=== PATIENT | female | born 1995 | race American Indian/Alaskan Native ===

== ENCOUNTER → 2022-04-14 | Emergency (ER) | payer MEDICAID ==
[~2022-04-14] MED LIST: ACETAMINOPHEN 325 MG TAB PO PRN; MORPHINE 2 MG/1 ML INJ IV PRN; MORPHINE 4 MG/1 ML INJ IV PRN; ONDANSETRON 4 MG/2 ML INJ IV PRN; SODIUM CHLORIDE 0.9% 500 ML 500 ML IV ONE
[2022-04-14 15:45] LABS: Mean Corpuscular HGB Conc 27 % (30-34); Platelet Count 214 K/mm3 (140-440); Red Blood Count 2.93 M/mm3 (3.65-5.03)
[2022-04-14 15:54] LABS: Hematocrit 16.7 % (30.3-42.9); Hemoglobin 4.5 gm/dl (10.1-14.3); Mean Corpuscular Volume 57 fl (79-97); Red Cell Distribution Width 20.7 % (13.2-15.2)
[2022-04-14 17:41] LABS: Basophils % (Manual) 0 % (0.0-1.8); Eosinophils % (Manual) 0 % (0.0-4.3); Total Cells Counted 100
[2022-04-14 17:42] LABS: Anisocytosis 2+; Hypochromasia 3+; Platelet Estimate Consistent w Auto; Poikilocytosis 1+; Tear Drop Cells Few
[2022-04-14 18:30] LABS: Blood Urea Nitrogen 9 mg/dL (7-17); Calcium 8.6 mg/dL (8.4-10.2); Hemolysis Index 1
[2022-04-14 18:32] LABS: BUN/Creatinine Ratio 18
[2022-04-14 21:20] VITALS: BP 104/55
--- NOTE | 2022-04-14 21:26 | Emergency Department Report ---
ED General Adult HPI - General Chief complaint: Pain General Stated complaint: DR ROSAS BLOOD TRANSFER Time Seen by Provider: 04/14/22 17:15 Source: patient Mode of arrival: Ambulatory Limitations: No Limitations - History of Present Illness Initial comments: The patient presents to the emergency department with a chief complaint of abnormal laboratory values. Patient states she went to her doctor yesterday and was told her hemoglobin was low. Patient does endorse a history of pica stating she eats ice daily. Patient is also a who is 4 weeks . She denies heavy vaginal bleeding and states her cycle only last 3 to 4 days. She also denies blood in her stool. Patient denies chest pain, shortness breath, or palpitations -: unknown Severity scale (0 -10): 0 Consistency: constant Improves with: none Worsens with: none Associated Symptoms: denies other symptoms Treatments Prior to Arrival: none - Related Data Previous Rx's Medication Instructions Recorded Last Taken Type Cyclobenzaprine [Flexeril 10mg] 10 mg PO TID PRN #20 tablet 03/23/14 Unknown Rx Ibuprofen [Motrin] 800 mg PO Q8H #30 tablet 03/23/14 Unknown Rx Nitrofurantoin [place]/M-Cryst 100 mg PO Q12HR #14 capsule 03/23/14 Unknown Rx [Macrobid] Cyclobenzaprine HCl [Flexeril 5mg] 5 mg PO DAILY #15 tablet 03/30/14 Unknown Rx Ibuprofen [Motrin 600 MG tab] 600 mg PO Q8H PRN #15 tablet 03/30/14 Unknown Rx Hydrocortisone 0.5% 1 applicatio TP TID #1 tube 02/03/15 Unknown Rx [Hydrocortisone 0.5% CREAM] Permethrin 5% [Acticin 5% CREAM] 1 applicatio TP ONCE #1 tube 02/03/15 Unknown Rx hydrOXYzine HCL [Atarax] 25 mg PO Q6HR PRN #20 tablet 02/03/15 Unknown Rx Cyclobenzaprine HCl [Flexeril 5 MG 5 mg PO TID #20 tab 02/20/15 Unknown Rx TAB] Ibuprofen [Motrin] 800 mg PO Q8HR PRN #15 tablet 03/31/15 Unknown Rx Allergies Allergy/AdvReac Type Severity Reaction Status Date / Time No Known Allergies Allergy Verified 04/14/22 14:23 ED Review of Systems ROS: Stated complaint: DR REQUEST BLOOD TRANSFER Other details as noted in HPI Comment: All other systems reviewed and negative Constitutional: denies: chills, fever Eyes: denies: eye pain, eye discharge, vision change ENT: denies: ear pain, throat pain Respiratory: denies: cough, shortness of breath, wheezing Cardiovascular: denies: chest pain, palpitations Endocrine: no symptoms reported Gastrointestinal: denies: abdominal pain, nausea, diarrhea Genitourinary: denies: urgency, dysuria, discharge Musculoskeletal: denies: back pain, joint swelling, arthralgia Skin: denies: rash, lesions Neurological: denies: headache, weakness, paresthesias Psychiatric: denies: anxiety, depression Hematological/Lymphatic: denies: easy bleeding, easy bruising ED Past Medical Hx - Past Medical History Hx Hypertension: No Hx Diabetes: No Hx Deep Vein Thrombosis: No Hx Renal Disease: No Hx Sickle Cell Disease: No Hx Seizures: No Hx Asthma: No - Social History Smoking Status: Unknown if ever smoked - Medications Home Medications: Home Medications Medication Instructions Recorded Confirmed Last Taken Type Cyclobenzaprine [Flexeril 10mg] 10 mg PO TID PRN #20 tablet 03/23/14 Unknown Rx Ibuprofen [Motrin] 800 mg PO Q8H #30 tablet 03/23/14 Unknown Rx Nitrofurantoin [place]/M-Cryst 100 mg PO Q12HR #14 capsule 03/23/14 Unknown Rx [Macrobid] Cyclobenzaprine HCl [Flexeril 5mg] 5 mg PO DAILY #15 tablet 03/30/14 Unknown Rx Ibuprofen [Motrin 600 MG tab] 600 mg PO Q8H PRN #15 tablet 03/30/14 Unknown Rx Hydrocortisone 0.5% 1 applicatio TP TID #1 tube 02/03/15 Unknown Rx [Hydrocortisone 0.5% CREAM] Permethrin 5% [Acticin 5% CREAM] 1 applicatio TP ONCE #1 tube 02/03/15 Unknown Rx hydrOXYzine HCL [Atarax] 25 mg PO Q6HR PRN #20 tablet 02/03/15 Unknown Rx Cyclobenzaprine HCl [Flexeril 5 MG 5 mg PO TID #20 tab 02/20/15 Unknown Rx TAB] Ibuprofen [Motrin] 800 mg PO Q8HR PRN #15 tablet 03/31/15 Unknown Rx ED Physical Exam - General Limitations: No Limitations General appearance: alert, in no apparent distress - Head Head exam: Present: atraumatic, normocephalic - Eye Eye exam: Present: normal appearance, PERRL, EOMI - ENT ENT exam: Present: mucous membranes moist - Neck Neck exam: Present: normal inspection - Respiratory Respiratory exam: Present: normal lung sounds bilaterally. Absent: respiratory distress - Cardiovascular Cardiovascular Exam: Present: normal rhythm, tachycardia. Absent: systolic murmur, diastolic murmur, rubs, gallop - GI/Abdominal GI/Abdominal exam: Present: soft, normal bowel sounds. Absent: distended, tenderness - Extremities Exam Extremities exam: Present: normal inspection - Back Exam Back exam: Present: normal inspection - Neurological Exam Neurological exam: Present: alert, oriented X3, CN II-XII intact. Absent: motor sensory deficit - Psychiatric Psychiatric exam: Present: normal affect, normal mood - Skin Skin exam: Present: warm, dry, intact, normal color. Absent: rash ED Course Vital Signs 04/14/22 04/14/22 04/14/22 14:19 17:55 18:00 Temperature 99.2 F Pulse Rate 101 H 92 H 89 Respiratory 16 21 13 Rate Blood Pressure 107/67 Blood Pressure 142/70 [Right] O2 Sat by Pulse 100 100 98 Oximetry 04/14/22 04/14/22 04/14/22 18:06 18:10 18:16 Temperature Pulse Rate 82 87 83 Respiratory 21 18 22 Rate Blood Pressure 107/67 107/67 102/54 Blood Pressure [Right] O2 Sat by Pulse 100 100 100 Oximetry 04/14/22 04/14/22 04/14/22 18:20 18:26 18:30 Temperature Pulse Rate 86 84 85 Respiratory 21 23 22 Rate Blood Pressure 102/54 102/54 102/54 Blood Pressure [Right] O2 Sat by Pulse 100 100 100 Oximetry 04/14/22 04/14/22 04/14/22 18:36 18:40 18:46 Temperature Pulse Rate 86 89 86 Respiratory 20 22 23 Rate Blood Pressure 102/54 102/54 105/54 Blood Pressure [Right] O2 Sat by Pulse 100 100 93 Oximetry 04/14/22 04/14/22 04/14/22 18:50 18:56 19:00 Temperature Pulse Rate 83 98 H 84 Respiratory 20 24 22 Rate Blood Pressure 102/54 102/54 102/54 Blood Pressure [Right] O2 Sat by Pulse 100 98 88 Oximetry 04/14/22 04/14/22 04/14/22 19:06 19:10 19:16 Temperature Pulse Rate 83 82 94 H Respiratory 21 20 17 Rate Blood Pressure 102/54 102/54 100/49 Blood Pressure [Right] O2 Sat by Pulse 100 100 100 Oximetry 04/14/22 04/14/22 04/14/22 19:20 19:26 19:30 Temperature Pulse Rate 85 85 86 Respiratory 21 22 17 Rate Blood Pressure 100/49 100/49 100/49 Blood Pressure [Right] O2 Sat by Pulse 100 100 98 Oximetry 04/14/22 04/14/22 04/14/22 19:36 19:40 19:46 Temperature Pulse Rate 90 85 83 Respiratory 18 23 21 Rate Blood Pressure 100/49 100/49 116/61 Blood Pressure [Right] O2 Sat by Pulse 81 L 100 97 Oximetry 04/14/22 04/14/22 04/14/22 19:50 19:55 20:00 Temperature 98.4 F 98.1 F 98 F Pulse Rate 82 82 94 H Respiratory 19 16 18 Rate Blood Pressure 116/61 102/53 104/56 Blood Pressure 99/70 107/51 111/58 [Right] O2 Sat by Pulse 100 100 97 Oximetry 04/14/22 04/14/22 04/14/22 20:05 20:06 20:10 Temperature 98.1 F Pulse Rate 90 84 82 Respiratory 18 18 19 Rate Blood Pressure 106/59 106/59 Blood Pressure 110/54 [Right] O2 Sat by Pulse 96 100 100 Oximetry 04/14/22 04/14/22 04/14/22 20:15 20:16 20:21 Temperature 98.2 F Pulse Rate 90 85 94 H Respiratory 18 22 21 Rate Blood Pressure 105/62 119/61 Blood Pressure 119/61 [Right] O2 Sat by Pulse 97 100 Oximetry 04/14/22 04/14/22 04/14/22 20:26 20:30 20:36 Temperature Pulse Rate 84 97 H 101 H Respiratory 17 24 18 Rate Blood Pressure 106/58 106/58 118/65 Blood Pressure [Right] O2 Sat by Pulse 100 100 100 Oximetry 04/14/22 04/14/22 04/14/22 20:40 20:46 20:50 Temperature Pulse Rate 94 H 89 98 H Respiratory 21 13 16 Rate Blood Pressure 118/65 111/66 111/66 Blood Pressure [Right] O2 Sat by Pulse 100 100 100 Oximetry 04/14/22 04/14/22 04/14/22 20:56 20:57 21:00 Temperature 98.5 F Pulse Rate 97 H 85 Respiratory 18 19 Rate Blood Pressure 101/53 101/53 Blood Pressure [Right] O2 Sat by Pulse 100 100 Oximetry 04/14/22 04/14/22 04/14/22 21:06 21:10 21:16 Temperature Pulse Rate 88 84 85 Respiratory 19 18 19 Rate Blood Pressure 101/53 101/53 104/55 Blood Pressure [Right] O2 Sat by Pulse 100 100 100 Oximetry 04/14/22 21:22 Temperature 98.3 F Pulse Rate Respiratory Rate Blood Pressure Blood Pressure [Right] O2 Sat by Pulse Oximetry ED Medical Decision Making - Lab Data Result diagrams: 04/14/22 14:43 04/14/22 14:43 Lab Results 04/14/22 04/14/22 04/14/22 Range/Units 14:43 14:43 14:43 WBC 4.1 L (4.5-11.0) K/mm3 RBC 2.93 L (3.65-5.03) M/mm3 Hgb 4.5 L* (10.1-14.3) gm/dl Hct 16.7 L* (30.3-42.9) % MCV 57 L (79-97) fl MCH 15 L (28-32) pg MCHC 27 L (30-34) % RDW 20.7 H (13.2-15.2) % Plt Count 214 (140-440) K/mm3 Add Manual Diff Complete Total Counted 100 Seg Neuts % (Manual) 72.0 H (40.0-70.0) % Band Neutrophils % 0 % Lymphocytes % (Manual) 20.0 (13.4-35.0) % Reactive Lymphs % (Man) 0 % Monocytes % (Manual) 8.0 H (0.0-7.3) % Eosinophils % (Manual) 0 (0.0-4.3) % Basophils % (Manual) 0 (0.0-1.8) % Metamyelocytes % 0 % Myelocytes % 0 % Promyelocytes % 0 % Blast Cells % 0 % Nucleated RBC % Not Reportable Seg Neutrophils # Man 3.0 (1.8-7.7) K/mm3 Band Neutrophils # 0.0 K/mm3 Lymphocytes # (Manual) 0.8 L (1.2-5.4) K/mm3 Abs React Lymphs (Man) 0.0 K/mm3 Monocytes # (Manual) 0.3 (0.0-0.8) K/mm3 Eosinophils # (Manual) 0.0 (0.0-0.4) K/mm3 Basophils # (Manual) 0.0 (0.0-0.1) K/mm3 Metamyelocytes # 0.0 K/mm3 Myelocytes # 0.0 K/mm3 Promyelocytes # 0.0 K/mm3 Blast Cells # 0.0 K/mm3 WBC Morphology Not Reportable Hypersegmented Neuts Not Reportable Hyposegmented Neuts Not Reportable Hypogranular Neuts Not Reportable Smudge Cells Not Reportable Toxic Granulation Not Reportable Toxic Vacuolation Not Reportable Dohle Bodies Not Reportable Pelger-Huet Anomaly Not Reportable Dania Rods Not Reportable Platelet Estimate Consistent w auto Clumped Platelets Not Reportable Plt Clumps, EDTA Not Reportable Large Platelets Not Reportable Giant Platelets Not Reportable Platelet Satelliting Not Reportable Plt Morphology Comment Not Reportable RBC Morphology Not Reportable Dimorphic RBCs Not Reportable Polychromasia Not Reportable Hypochromasia 3+ Poikilocytosis 1+ Anisocytosis 2+ Microcytosis 2+ Macrocytosis Not Reportable Spherocytes Not Reportable Pappenheimer Bodies Not Reportable Sickle Cells Not Reportable Target Cells Not Reportable Tear Drop Cells Few Ovalocytes Not Reportable Helmet Cells Not Reportable [employer] Bodies Not Reportable [place] Rings Not Reportable [place] Cells Not Reportable Bite Cells Not Reportable Crenated Cell Not Reportable Elliptocytes Few Acanthocytes (Spur) Not Reportable Rouleaux Not Reportable Hemoglobin C Crystals Not Reportable Schistocytes Not Reportable Malaria parasites Not Reportable [place]uy Bodies Not Reportable Hem Pathologist Commnt No Sodium 137 (137-145) mmol/L Potassium 3.6 (3.6-5.0) mmol/L Chloride 103.5 (98-107) mmol/L Carbon Dioxide 21 L (22-30) mmol/L Anion Gap 16 mmol/L BUN 9 (7-17) mg/dL Creatinine 0.5 L (0.6-1.2) mg/dL Estimated GFR > 60 ml/min BUN/Creatinine Ratio 18 % Glucose 102 H (65-100) mg/dL Calcium 8.6 (8.4-10.2) mg/dL HCG, Quant (0-4) mIU/mL Blood Type B POSITIVE Antibody Screen Negative Crossmatch See Detail 04/14/22 Range/Units 18:00 WBC (4.5-11.0) K/mm3 RBC (3.65-5.03) M/mm3 Hgb (10.1-14.3) gm/dl Hct (30.3-42.9) % MCV (79-97) fl MCH (28-32) pg MCHC (30-34) % RDW (13.2-15.2) % Plt Count (140-440) K/mm3 Add Manual Diff Total Counted Seg Neuts % (Manual) (40.0-70.0) % Band Neutrophils % % Lymphocytes % (Manual) (13.4-35.0) % Reactive Lymphs % (Man) % Monocytes % (Manual) (0.0-7.3) % Eosinophils % (Manual) (0.0-4.3) % Basophils % (Manual) (0.0-1.8) % Metamyelocytes % % Myelocytes % % Promyelocytes % % Blast Cells % % Nucleated RBC % Seg Neutrophils # Man (1.8-7.7) K/mm3 Band Neutrophils # K/mm3 Lymphocytes # (Manual) (1.2-5.4) K/mm3 Abs React Lymphs (Man) K/mm3 Monocytes # (Manual) (0.0-0.8) K/mm3 Eosinophils # (Manual) (0.0-0.4) K/mm3 Basophils # (Manual) (0.0-0.1) K/mm3 Metamyelocytes # K/mm3 Myelocytes # K/mm3 Promyelocytes # K/mm3 Blast Cells # K/mm3 WBC Morphology Hypersegmented Neuts Hyposegmented Neuts Hypogranular Neuts Smudge Cells Toxic Granulation Toxic Vacuolation Dohle Bodies Pelger-Huet Anomaly Dania Rods Platelet Estimate Clumped Platelets Plt Clumps, EDTA Large Platelets Giant Platelets Platelet Satelliting Plt Morphology Comment RBC Morphology Dimorphic RBCs Polychromasia Hypochromasia Poikilocytosis Anisocytosis Microcytosis Macrocytosis Spherocytes Pappenheimer Bodies Sickle Cells Target Cells Tear Drop Cells Ovalocytes Helmet Cells [employer] Bodies Marion Rings [place] Cells Bite Cells Crenated Cell Elliptocytes Acanthocytes (Spur) Rouleaux Hemoglobin C Crystals Schistocytes Malaria parasites Chuy Bodies Hem Pathologist Commnt Sodium (137-145) mmol/L Potassium (3.6-5.0) mmol/L Chloride (98-107) mmol/L Carbon Dioxide (22-30) mmol/L Anion Gap mmol/L BUN (7-17) mg/dL Creatinine (0.6-1.2) mg/dL Estimated GFR ml/min BUN/Creatinine Ratio % Glucose (65-100) mg/dL Calcium (8.4-10.2) mg/dL HCG, Quant 4037 H (0-4) mIU/mL Blood Type Antibody Screen Crossmatch - Medical Decision Making Patient will receive 4 units of packed RBCs Spoke with Dr. Marlow who will see the patient in consultation Critical Care Time: Yes Critical care time in (mins) excluding proc time.: 35 Critical care attestation.: If time is entered above; I have spent that time in minutes in the direct care of this critically ill patient, excluding procedure time. ED Disposition Clinical Impression: Anemia requiring transfusions Disposition: ADMITTED INPATIENT Is pt being admited?: Yes Does the pt Need Aspirin: No Condition: Fair
--- NOTE | 2022-04-14 21:50 | History and Physical Report ---
History of Present Illness Date of examination: 04/14/22 Date of admission: 04/14/2022 Chief complaint: Abnormal labs History of present illness: 26-year-old -[place] female with significant past medical history of lupus presenting to the emergency room today with a chief complaint of abnormal labs. Patient states she went to have physician and was told hemoglobin is low. She also indicates that she has a history of pica and she eats ice on a daily basis. Patient is 3 para 2 currently 4 weeks . She denies any bright red blood per rectum, denies any black stool, denies any hematemesis, denies any heavy periods and denies any history of hemorrhoids or uterine fibroids. Patient denies any use of nonsteroidal anti-inflammatory medication. She indicates she has had blood transfusion about 2 years ago when her blood count was low. Work-up in the emergency room today, hemoglobin was found to be 4.5 and hematocrit 16.7. Patient is being prepared for blood transfusion. Past History Past Medical History: No medical history Past Surgical History: No surgical history Social history: no significant social history Family history: no significant family history Medications and Allergies Allergies Allergy/AdvReac Type Severity Reaction Status Date / Time No Known Allergies Allergy Verified 04/14/22 14:23 Home Medications Medication Instructions Recorded Confirmed Last Taken Type Cyclobenzaprine [Flexeril 10mg] 10 mg PO TID PRN #20 tablet 03/23/14 Unknown Rx Ibuprofen [Motrin] 800 mg PO Q8H #30 tablet 03/23/14 Unknown Rx Nitrofurantoin [place]/M-Cryst 100 mg PO Q12HR #14 capsule 03/23/14 Unknown Rx [Macrobid] Cyclobenzaprine HCl [Flexeril 5mg] 5 mg PO DAILY #15 tablet 03/30/14 Unknown Rx Ibuprofen [Motrin 600 MG tab] 600 mg PO Q8H PRN #15 tablet 03/30/14 Unknown Rx Hydrocortisone 0.5% 1 applicatio TP TID #1 tube 02/03/15 Unknown Rx [Hydrocortisone 0.5% CREAM] Permethrin 5% [Acticin 5% CREAM] 1 applicatio TP ONCE #1 tube 02/03/15 Unknown Rx hydrOXYzine HCL [Atarax] 25 mg PO Q6HR PRN #20 tablet 02/03/15 Unknown Rx Cyclobenzaprine HCl [Flexeril 5 MG 5 mg PO TID #20 tab 02/20/15 Unknown Rx TAB] Ibuprofen [Motrin] 800 mg PO Q8HR PRN #15 tablet 03/31/15 Unknown Rx Review of Systems Constitutional: no fever, no chills Ears, nose, mouth and throat: no nasal congestion, no sore throat Respiratory: no cough, no shortness of breath Gastrointestinal: no abdominal pain, no nausea, no vomiting, no diarrhea, no hematemesis, no BRBPR, no melena, no hematochezia Genitourinary Female: , no menorrhagia, no hematuria Menstruation: no period heavy, no period spotting Musculoskeletal: no neck pain, no low back pain Integumentary: no rash, no pruritis Neurological: no headaches, no confusion Psychiatric: no anxiety, no depression Endocrine: no polyphagia, no polydipsia, no polyuria Exam - Constitutional Vitals: Temp Pulse Resp BP Pulse Ox 98.3 F 85 19 104/55 100 04/14/22 21:22 04/14/22 21:16 04/14/22 21:16 04/14/22 21:16 04/14/22 21:16 General appearance: Present: no acute distress, well-nourished, other (Moderate pallor) - EENT Eyes: Present: PERRL, EOM intact. Absent: scleral icterus ENT: hearing intact, clear oral mucosa, dentition normal - Neck Neck: Present: supple, normal ROM - Respiratory Respiratory effort: normal Respiratory: bilateral: CTA - Cardiovascular Rhythm: regular Heart Sounds: Present: S1 & S2. Absent: gallop, systolic murmur, diastolic murmur, rub, click - Extremities Extremities: no ischemia, pulses intact, pulses symmetrical, No edema, normal temperature, normal color, Full ROM Peripheral Pulses: within normal limits - Abdominal General gastrointestinal: Present: soft, non-tender, non-distended, normal bowel sounds. Absent: mass - Integumentary Integumentary: Present: clear, warm, dry, normal turgor. Absent: rash - Musculoskeletal Musculoskeletal: strength equal bilaterally - Psychiatric Psychiatric: appropriate mood/affect, intact judgment & insight, memory intact, cooperative - Neurologic Neurologic: CNII-XII intact, no focal deficits, moves all extremities Results - Labs CBC & Chem 7: 04/14/22 14:43 04/14/22 14:43 Labs: Abnormal lab results 04/14/22 04/14/22 04/14/22 Range/Units 14:43 14:43 14:43 WBC 4.1 L (4.5-11.0) K/mm3 RBC 2.93 L (3.65-5.03) M/mm3 Hgb 4.5 L* (10.1-14.3) gm/dl Hct 16.7 L* (30.3-42.9) % MCV 57 L (79-97) fl MCH 15 L (28-32) pg MCHC 27 L (30-34) % RDW 20.7 H (13.2-15.2) % Seg Neuts % (Manual) 72.0 H (40.0-70.0) % Monocytes % (Manual) 8.0 H (0.0-7.3) % Lymphocytes # (Manual) 0.8 L (1.2-5.4) K/mm3 Carbon Dioxide 21 L (22-30) mmol/L Creatinine 0.5 L (0.6-1.2) mg/dL Glucose 102 H (65-100) mg/dL HCG, Quant (0-4) mIU/mL Crossmatch See Detail 04/14/22 Range/Units 18:00 WBC (4.5-11.0) K/mm3 RBC (3.65-5.03) M/mm3 Hgb (10.1-14.3) gm/dl Hct (30.3-42.9) % MCV (79-97) fl MCH (28-32) pg MCHC (30-34) % RDW (13.2-15.2) % Seg Neuts % (Manual) (40.0-70.0) % Monocytes % (Manual) (0.0-7.3) % Lymphocytes # (Manual) (1.2-5.4) K/mm3 Carbon Dioxide (22-30) mmol/L Creatinine (0.6-1.2) mg/dL Glucose (65-100) mg/dL HCG, Quant 4037 H (0-4) mIU/mL Crossmatch Assessment and Plan Assessment: 1. Anemia-microcytic 2. 4 weeks Plan: 1. Patient admitted and being prepared for blood transfusion. 2. We will monitor CBC. 3. Consult placed to MODELING AGENT for further evaluation and recommendations DVT prophylaxis: Sequential compression device CODE STATUS: Full code
== END | disposition admitted as inpatient to this hospital (09) ==
LOC: ED 14:02
DX: D64.9 Anemia, unspecified (principal)
CPT/HCPCS: 36415; 80048; 84702; 85007; 85025; 86850; 86900; 86901; 86920; 99282; J7040; P9016